=== PATIENT | female | born 1980 | race Caucasian/White ===

== ENCOUNTER → 2016-11-29 | Outpatient (CLI) | payer BC ==
[~2016-11-29] MED LIST: ALLEGRA 180MG180 MG PO; BUMEX 1MG TA1 MG/TA1 PO; BUMEX2 MG PO; COZAAR100 MG PO; CRANBERRY450 MG PO; CYMBALTA 60MG60 MG PO; DOXYCYCLINE 10100 MG PO; ECHINACEA 5001 EACH PO; FERROUS SULFATE65 MG PO; FIBER0.52 GM PO; FOLIC ACID800 MCG PO; GINGER ROOT EX250 MG PO; HCTZ 25MG TAB25 MG PO; K-DUR 10 MEQ T10 MEQ PO; LAMICTAL XR50 MG PO; MAG-OX 400400 MG/TAB PO; MASON NATURAL1200 MG PO; MASON NATURAL500 MG PO; MERIBIN5 MG PO; METHOTREXA2.5 MG/TAB PO; MULTIPLE VITAMI1 TA5 PO; NATURAL E400 IU PO; NUVIGIL150 MG PO; PREDNISONE20 MG PO; PROBIOTICA100 Milli1 PO; PROTONIX 40MG T40 MG PO; RITALIN 20M20 MG/TAB; ULTRAM 50MG TAB50 MG PO; VITAMIN B-1000 MCG/T PO; VITAMIN D1000 IU PO; VITAMINC1000TA PO; WELCHOL 625MG625 MG PO
== END ==
LOC: BHSO 14:35
DX: F90.0 Attention-deficit hyperactivity disorder, predominantly inattentive type (principal)

== ENCOUNTER → 2016-12-06 | Outpatient (CLI) | payer BC ==
[~2016-12-06] VITALS: Ht 174 cm; Wt 129.5 kg
[2016-12-06 16:16] VITALS: BP 142/77; PULSE 91
[2016-12-06 17:08] VITALS: BP 142/77; PULSE 91
== END ==
LOC: LIGHT 14:24
DX: E88.81 Metabolic syndrome and other insulin resistance (principal); I10 Essential (primary) hypertension; G47.33 Obstructive sleep apnea (adult) (pediatric); E66.01 Morbid (severe) obesity due to excess calories; Z68.41 Body mass index [BMI] 40.0-44.9, adult

== ENCOUNTER → 2017-01-24 | Outpatient (CLI) | payer BC | LOC: BHSO 15:49 | DX: F90.0 Attention-deficit hyperactivity disorder, predominantly inattentive type (principal) ==

== ENCOUNTER → 2017-04-11 | Outpatient (CLI) | payer BC ==
[~2017-04-11] VITALS: Ht 174 cm; Wt 130.2 kg
[2017-04-11 16:21] VITALS: BP 136/72; PULSE 77
== END ==
LOC: LIGHT 12:55
DX: E88.81 Metabolic syndrome and other insulin resistance (principal); I10 Essential (primary) hypertension; E66.01 Morbid (severe) obesity due to excess calories; Z68.41 Body mass index [BMI] 40.0-44.9, adult; Z71.3 Dietary counseling and surveillance; G47.33 Obstructive sleep apnea (adult) (pediatric)

== ENCOUNTER → 2017-04-29 | Outpatient (CLI) | payer BC | LOC: BHSO 15:58 | DX: F90.0 Attention-deficit hyperactivity disorder, predominantly inattentive type (principal) ==

== ENCOUNTER → 2017-05-28 | Outpatient (CLI) | payer BC | LOC: BHSO 09:00 | DX: Z01.818 Encounter for other preprocedural examination (principal) ==

== ENCOUNTER → 2017-09-18 | Outpatient (CLI) | payer BC | LOC: BHSO 16:01 | DX: F90.0 Attention-deficit hyperactivity disorder, predominantly inattentive type (principal) ==

== ENCOUNTER → 2017-11-20 | Outpatient (CLI) | payer BC | LOC: BHSO 16:10 | DX: F90.0 Attention-deficit hyperactivity disorder, predominantly inattentive type (principal) | CPT/HCPCS: G0463 ==

== ENCOUNTER → 2018-02-06 | Outpatient (CLI) | payer BC | LOC: BHSO 15:55 | DX: F90.0 Attention-deficit hyperactivity disorder, predominantly inattentive type (principal) | CPT/HCPCS: G0463 ==

== ENCOUNTER → 2018-07-29 | Outpatient (CLI) | payer BC | LOC: BHSO 16:17 | DX: F90.0 Attention-deficit hyperactivity disorder, predominantly inattentive type (principal) | CPT/HCPCS: G0463 ==

== ENCOUNTER → 2019-02-03 | Outpatient (CLI) | payer BC | LOC: BHSO 16:18 | DX: F90.0 Attention-deficit hyperactivity disorder, predominantly inattentive type (principal) | CPT/HCPCS: G0463 ==

== ENCOUNTER → 2019-08-06 | Outpatient (CLI) | payer BC | LOC: BHSO 16:26 | DX: F90.0 Attention-deficit hyperactivity disorder, predominantly inattentive type (principal) | CPT/HCPCS: G0463 ==